=== PATIENT | female | born 1995 | race Caucasian/White ===

== ENCOUNTER 2018-02-04 13:12 | Emergency (ER) | payer MEDICAID ==
[~2018-02-04] VITALS: Ht 152.4 cm; Wt 55.0 kg
[2018-02-04] MEDS ORDERED: IBUPROFEN 600MG TABLET PO ONE (17:15)
[2018-02-04 17:52] VITALS: BP 100/62
== END 2018-02-04 18:21 | disposition home or self-care (01) ==
LOC: ER 13:32
DX: M79.605 Pain in left leg (principal); M25.572 Pain in left ankle and joints of left foot; M79.1 Myalgia
CPT/HCPCS: 73590; 73610; 73630; 99284; Z7610